=== PATIENT | male | born 1990 | race Caucasian/White ===

== ENCOUNTER 2017-05-22 03:53 | Emergency (ER) | payer OTHER ==
[2017-05-22 04:02] VITALS: TEMP 97.5; O2SAT 98
[2017-05-22] MEDS ORDERED: NS 1,000 ML IV ONE (04:26)
[2017-05-22] MEDS ORDERED: ONDANSETRON 4 MG/2 ML VIAL IVP ONE (04:26)
--- NOTE | 2017-05-22 04:27 | EDPHY ---
H & P Stated Complaint: VOMIT AND DIRRHEA, START 0030, TAYLOR Time Seen by Provider: 05/22/17 04:18 HPI/ROS: Chief Complaint: Nausea, vomiting, diarrhea HPI: 26-year-old male started having nausea vomiting diarrhea about midnight. He has vomited multiple times and had several episodes of diarrhea. He initially had some mild crampy abdominal pain but that is gone away. No blood or coffee grounds in his vomit. No dark tarry stools or blood. No fevers or chills. No recent travel or camping. No past medical history. ROS: 10 point Review of Systems is negative except as noted in the HPI. PMH: None Social History: No smoking, occasional alcohol, no recreational drug use Family History: non-contributory Physical Exam: Gen: Awake, Alert, No Distress HEENT: Nose: no rhinorrhea Eyes: PERRLA, EOMI Mouth: Moist mucosa Neck: Supple, no JVD Chest: nontender, lungs clear to auscultation Heart: S1, S2 normal, no murmur Abd: Soft, non-tender, no guarding Back: no CVA tenderness, no midline tenderness Ext: no edema, non-tender Skin: no rash Neuro: CN II-XII intact, Sensation grossly intact, Strength 5/5 in bilateral upper and lower extremities - Personal History Current Tetanus/Diphtheria Vaccine: Yes - Medical/Surgical History Hx Asthma: No Hx Chronic Respiratory Disease: No Hx Diabetes: No Hx Cardiac Disease: No Hx Renal Disease: No Hx Cirrhosis: No Hx Alcoholism: No Hx HIV/AIDS: No Hx Splenectomy or Spleen Trauma: No Other PMH: DENIES - Social History Smoking Status: Never smoked Constitutional: Initial Vital Signs Temperature (C) 36.4 C 05/22/17 03:57 Heart Rate 110 H 05/22/17 03:57 Respiratory Rate 20 05/22/17 03:57 Blood Pressure 108/77 05/22/17 03:57 O2 Sat (%) 98 05/22/17 03:57 O2 Delivery Mode Room Air Allergies/Adverse Reactions: No Known Allergies Allergy (Unverified 05/22/17 03:57) Home Medications: Medication Instructions Recorded [facility] 05/22/17 Medical Decision Making ED Course/Re-evaluation: Patient is improved after fluids and Zofran. He is tolerating p.o.. Has a soft benign abdomen. Will discharge with follow-up with primary care physician as an outpatient. No findings suggestive of acute appendicitis, cholecystitis, acute bowel obstruction or pancreatitis. - Data Points Medications Given: Discontinued Medications Sodium Chloride (Ns) 1,000 mls @ 0 mls/hr IV ONCE ONE; Wide Open PRN Reason: Protocol Stop: 05/22/17 04:27 Last Admin: 05/22/17 04:42 Dose: 1,000 mls Ondansetron HCl (Zofran) 4 mg IVP EDNOW ONE Stop: 05/22/17 04:27 Last Admin: 05/22/17 04:42 Dose: 4 mg Departure - Departure Disposition: Home, Routine, Self-Care Clinical Impression: Vomiting and diarrhea Condition: Good Instructions: Acute Nausea and Vomiting (ED), Acute Diarrhea (ED) Additional Instructions: You may take Zofran as needed for nausea or vomiting. Return to the emergency department uncontrolled nausea vomiting, worsening abdominal pain, fevers, chills, or any other concerns. Follow up with your primary care physician in 3-4 days if symptoms are not improving. Referrals: Majo Hernandez MD [[facility] [place] Provider] - As per Instructions
[2017-05-22] MEDS ORDERED: ONDANSETRON 4MG PREPACK#2 BTL TAKEHOME ONE (05:46)
[2017-05-22 06:04] VITALS: BP 122/80; PULSE 92; RESP 16
== END 2017-05-22 06:03 | disposition home or self-care (01) ==
DX: R11.10 Vomiting, unspecified (principal); R19.7 Diarrhea, unspecified; E86.9 Volume depletion, unspecified
CPT/HCPCS: 96374; J2405